=== PATIENT | female | born 1950 | race Caucasian/White ===

== ENCOUNTER 2018-06-20 11:21 | Emergency (ER) | payer MEDICARE ==
[~2018-06-20] VITALS: Ht 152.4 cm; Wt 90.7 kg
[2018-06-20] MEDS ORDERED: MAGIC MOUTHWASH SWISH&SPIT (11:38)
[2018-06-20] MEDS ORDERED: ONDANSETRON HCL4 M2 PO (11:39)
[2018-06-20] MEDS ORDERED: [UNRECOGNIZED DRUG - OTHER] TOP (11:41)
[2018-06-20] MEDS ORDERED: COZAAR 25 MG TA25 M1 PO (11:42)
[2018-06-20] MEDS ORDERED: HYDROCHLOROTHIA25 M2 PO (11:42)
[2018-06-20] MEDS ORDERED: COREG25 MG PO (11:42)
[2018-06-20] MEDS ORDERED: SYNTHROID150 MCG PO (11:42)
[2018-06-20] MEDS ORDERED: OMEPRAZOLE20 MG PO (11:43)
[2018-06-20] MEDS ORDERED: RESTASIS1 EACH OPHTHALMIC (11:44)
[2018-06-20] MEDS ORDERED: AGONEAZE 2.5%-1 EACH TOP (11:49)
[2018-06-20 12:35] LABS: HEMATOCRIT 31.7 % (37.0-47.0); HEMOGLOBIN 10.5 gm/dL (12.0-15.0); MCH 30.6 pg (26.0-34.0); MCHC 33.1 g/dL (28.0-37.0); MCV 92.7 fL (80.0-100.0); MPV 8.8 fl. (7.2-11.1); NUCLEATED RBCS 0 /100WBC; PLATELET COUNT* 128 thou/uL (150-400); RBC 3.42 mil/uL (4.20-5.00); RDW-CV 18.8 % (10.5-14.5); WBC 4.8 thou/uL (4.0-11.0)
[2018-06-20 12:41] LABS: ANION GAP 8 mmol/L (7-16); APTT 28.9 Seconds (25.0-31.3); BUN 18 mg/dL (7-18); CALCIUM 8.4 mg/dL (8.5-10.1); CHLORIDE 94 mmol/L (98-107); CO2 29 mmol/L (21-32); CREATININE 2.4 mg/dL (0.6-1.3); GLUCOSE 118 mg/dL (70-99); INR 1.1; PROTIME 10.8 Seconds (9.20-11.50); SODIUM 131 mmol/L (136-145)
[2018-06-20 12:46] LABS: POTASSIUM 2.7 mmol/L (3.5-5.1)
[2018-06-20 12:52] LABS: ALBUMIN 2.6 g/dL (3.4-5.0); ALKALINE PHOSPHATASE 77 U/L (46-116); NT-PRO BRAIN NAT PEPTIDE 552 pg/mL (<300); SGOT 25 U/L (15-37); SGPT 9 U/L (30-65); TOTAL BILIRUBIN 0.7 mg/dL (<0.1-1.0); TOTAL PROTEIN 6.5 g/dL (6.4-8.2); TROPONIN-I LEVEL <0.06 ng/mL (<0.06)
[2018-06-20 13:08] LABS: ABSOLUTE LYMPHOCYTES 0.3 thou/uL (0.8-5.3); ABSOLUTE MONOCYTES 0.6 thou/uL (0.0-1.2); ABSOLUTE NEUTROPHILS 3.8 thou/uL (1.6-8.1); PLATELET ESTIMATE ADEQUATE
[2018-06-20] MEDS ORDERED: POTASSIUM20 PO (13:14)
[2018-06-20] MEDS ORDERED: FLEXERIL PO (13:14)
[2018-06-20] MEDS ORDERED: PERCOCET 5-3251 EACH PO (13:14)
[2018-06-20 13:34] VITALS: BP 142/68
[2018-06-20 13:38] LABS: URINE BILIRUBIN NEGATIVE (Negative); URINE BLOOD 1+ (Negative); URINE CLARITY CLEAR; URINE COLOR YELLOW; URINE GLUCOSE-RANDOM NEGATIVE (Negative); URINE KETONES NEGATIVE (Negative); URINE LEUKOCYTES-REFLEX 2+ (Negative); URINE NITRITE-REFLEX NEGATIVE (Negative); URINE PROTEIN 1+ (Negative); URINE SPECIFIC GRAVITY 1.015 (1.005-1.030); URINE UROBILINOGEN 0.2 E.U./dl (0.2-1.0)
[2018-06-20 13:40] LABS: BACTERIA-REFLEX >30 Many /HPF (None Seen); CASTS None Seen /LPF (None Seen); CRYSTALS None Seen /LPF (None Seen); SQUAMOUS NONE SEEN /LPF (0-3); URINE RBC 3-10 Few /HPF (0-2); URINE WBC-REFLEX >25 Many /HPF (0-5)
--- NOTE | 2018-06-20 16:24 | EKG ---
[place] [address] ELECTROCARDIOGRAM REPORT Name: STUART WHEELER [id number] Admission: 06/20/18 Attend Phys: Discharge: 06/20/18 Date of : 48 Report #: [id number] THIS REPORT FOR: //name// [facility] ED Test Date: 2018-06-20 Test Time: 12:25:47 Pat Name: STUART WHEELER Department: Room: Gender: F Safety Analyst: Cinthya TOWNSEND : 1950 Requested By: Yonathan Mckenzie Order Number: [id number] MD: Spencer Hdez Measurements Intervals [place] Rate: 64 P: -8 KS: 181 QRS: -17 QRSD: 97 T: 15 QT: 468 QTc: 483 Interpretive Statements Sinus rhythm Probable left atrial enlargement Inferior infarct, old Probable anterior infarct, age indeterminate No previous ECG available for comparison Electronically Signed On 06-20-2018 16:23:47 PROFESSOR OF MUSIC by Spencer Hdez [email or web address] <ELECTRONICALLY SIGNED> By: Spencer Hdez MD, [facility] 06/20/18 1623 D: 115 1225 Spencer Hdez MD, FACC /EPI
== END 2018-06-20 13:38 | disposition home or self-care (01) ==
LOC: M.ERS 11:21
PROVIDERS: Family Medicine
DX: M43.6 Torticollis (principal); E87.6 Hypokalemia; I10 Essential (primary) hypertension; E03.9 Hypothyroidism, unspecified; Z90.710 Acquired absence of both cervix and uterus; Z85.43 Personal history of malignant neoplasm of ovary; Z88.0 Allergy status to penicillin